=== PATIENT | male | born 1995 | race Two or more races ===

== ENCOUNTER 2023-11-14 19:58 | Emergency (ER) | payer MEDICAID, OTHER ==
[~2023-11-14] VITALS: Ht 167.6 cm; Wt 92.2 kg
[2023-11-14 21:19] LABS: Base Excess 4.2 mmol/L (-2.0-2.0)
[2023-11-14 21:54] LABS: Basophils # (auto) 0 10 ^3/uL (0-0.2); Basophils % (auto) 0.5 % (0.0-2.0); Eosinophils # (auto) 0.2 10 ^3/uL (0-0.8); Eosinophils % (auto) 2.2 % (0.0-7.0); Hematocrit 45.2 % (41.0-53.0); Hemoglobin 15.3 g/dL (13.5-17.5); Lymphocytes # (auto) 3.9 10 ^3/uL (0.4-5.4); Lymphocytes % (auto) 47.4 % (10.0-50.0); Mean Corpuscular Hemoglobin 29.1 pg (28.0-32.0); Mean Corpuscular Hgb Conc. 33.7 g/dL (32.0-36.0); Mean Corpuscular Volume 86.2 fL (80.0-100.0); Monocytes # (auto) 0.7 10 ^3/uL (0-1.3); Monocytes % (auto) 8.1 % (0.0-12.0); Neutrophils # (auto) 3.4 10 ^3/uL (1.6-8.6); Neutrophils % (auto) 41.8 % (37.0-80.0); Red Blood Cells 5.24 10^6/uL (4.5-5.90); Red Cell Distribution Width 12.8 % (11.8-14.3); White Blood Cell 8.2 10^3/uL (4.4-10.8)
[2023-11-14 22:11] LABS: Alanine Aminotransferase 31 U/L (7-40); Albumin 4.6 g/dL (3.2-4.8); Alkaline Phosphatase 70 U/L (46-116); Anion Gap 8 (5-15); Aspartate Aminotransferase 22 U/L (13-40); BUN/Creatinine Ratio 8.9 (10.0-20.0); Bilirubin, Total 0.3 mg/dL (0.2-1.0); Blood Urea Nitrogen 11 mg/dL (9-23); Calcium 9.2 mg/dL (8.7-10.4); Carbon Dioxide 27 mmol/L (20-30); Chloride 104 mmol/L (98-107); Glucose 96 mg/dL (74-106); Potassium 3.8 mmol/L (3.5-5.1); Sodium 139 mmol/L (136-145); Total Protein 7.4 g/dL (5.7-8.2)
[2023-11-15] VITALS: BP 111/61; PULSE 93; RESP 20; TEMP 98.4; O2SAT 100
[2023-11-15 00:18] LABS: Base Excess 1.4 mmol/L (-2.0-2.0)
== END 2023-11-15 01:34 | disposition home or self-care (01) ==
LOC: ER 19:58
DX: T58.2X1A Toxic effect of carbon monoxide from incomplete combustion of other domestic fuels, accidental (unintentional), initial encounter (principal); Z88.8 Allergy status to other drugs, medicaments and biological substances; Y92.098 Other place in other non-institutional residence as the place of occurrence of the external cause
CPT/HCPCS: 36415; 36600; 80053; 82805; 85025

== ENCOUNTER 2024-10-20 11:10 | Emergency (ER) | payer BC, MEDICAID ==
[~2024-10-20] VITALS: Ht 170.2 cm; Wt 83.0 kg
[2024-10-20 11:53] VITALS: BP 122/77; PULSE 112; RESP 16; TEMP 100.8; O2SAT 95
--- NOTE | 2024-10-20 11:53 | ED.PDOC ---
Eye-HPI HPI Comments A 28 YEAR OLD MALE PRESENTS TO THE ED WITH COMPLAINT OF FLU-LIKE SYMPTOMS. PATIENT STATES HE HAS BEEN EXPERIENCING A SORE THROAT, BODY ACHES, MILD COUGH, CONGESTION, AND OCCASIONAL FEVER FOR THE PAST 2 DAYS. PATIENT DENIES SHORTNESS OF BREATH, CHEST PAIN, ABDOMINAL PAIN, NAUSEA, VOMITING, HEADACHE, OR OTHER COMPLAINTS. NO OTHER SYMPTOMS OR MODIFYING FACTORS AT THIS TIME. PATIENT IS ALERT, ORIENTED X 4, AND HAS STEADY GAIT. Chief Complaint: Flu like Time Seen by MD: 11:21 Reviewed Notes: Nurses Notes, Medications, Allergies Allergies: Coded Allergies: Penicillins (Verified Allergy, Unknown, 11/14/23) Information Source: Patient Mode of Arrival: Ambulatory Timing: Days Duration: Since onset, Days Prehospital treatment: None Quality: Pain, Red Lids: Normal Conjunctiva: Normal Cornea: Normal Pupils: Normal EOM: Normal Fundus: Normal Slit lamp exam: Normal Anterior chamber: Normal Mouth Location: Pharynx Mouth: Normal ENT Ear Exam: Normal, Normal, Normal Nose: Normal Sinuses: Normal Oropharynx: Tonsillar hypertrophy, Red Onset: Spontaneous Throat Exposed to: None History of: None Last Tetanus: Unknown Modifying factors: Nothing Associated signs and symptoms: Fever, Nasal Symptoms, Sore Throat Past Medical History PAST MEDICAL HISTORY: Denies Surgical History: Denies all surgeries Family History Family History: Reviewed,noncontributory to illness, Family hx of HTN Social History Smoker: Non-Smoker Alcohol: Occasionally Drugs: Denies Drug Use Lives In: Home Constitutional: reports: fever; denies: chills, diaphoresis, fatigue, malaise, sweats, weakness, others EENTM: reports: nose congestion, throat pain, throat swelling; denies: blurred vision, double vision, ear bleeding, ear discharge, ear drainage, ear pain, ear ringing, eye pain, eye redness, hearing loss, mouth pain, mouth swelling, nasal discharge, nose bleeding, nose pain, photophobia, tearing, voice changes, others Respiratory: reports: cough; denies: hemoptysis, orthopnea, SOB at rest, shortness of breath, SOB with excertion, stridor, wheezing, others Cardiovascular: denies: chest pain, dizzy spells, diaphoresis, Dyspnea on e xertion, edema, irregular heart beat, left arm pain, lightheadedness, palpitations, PND, syncope, others Gastrointestinal: denies: abdomen distended, abdominal pain, blood streaked bowels, constipated, diarrhea, dysphagia, difficulty swallowing, hematemesis, melena, nausea, poor appetite, poor fluid intake, rectal bleeding, rectal pain, vomiting, others Genitourinary: denies: burning, dysuria, flank pain, frequency, hematuria, incontinence, penile discharge, penile sore, pain, testicle pain, testicle swelling, urgency, others Neurological: denies: dizziness, fainting, headache, left sided numbness, left sided weakness, numbness, paresthesia, pre-existing deficit, right sided numbness, right sided weakness, seizure, speech problems, tingling, tremors, weakness, others Musculoskeletal: reports: muscle pain; denies: back pain, gout, joint pain, joint swelling, muscle stiffness, neck pain, others Integumetry: denies: bruises, change in color, change in hair/nails, dryness, laceration, lesions, lumps, rash, wounds, others Allergic/Immunocompromised: denies: Difficulty Healing, Frequent Infections, Hives, Itching, others Hematologic/Lymphatic: denies: anemia, blood clots, easy bleeding, easy bruising, swollen glands, others Endocrine: denies: excessive hunger, excessive sweating, excessive thirst, excessive urination, flushing, intolerance to cold, intolerance to heat, unexplained weight gain, unexplained weight loss, others Psychiatric: denies: anxiety, bipolar disorder, depression, hopeless, panic disorder, schizophrenia, sleepless, suicidal, others All Other Systems: Reviewed and Negative Physical Exam General Appearance: No Apparent Distress, Normal HEENT: PERRL/EOMI, Pharyngeal Erythema (TONSILLAR SWELLING, NO EXUDATES. ), TMs Normal Neck: Full Range of Motion, Non-Tender, Normal, Normal Inspection Respiratory: Chest Non-Tender, Lungs Clear, No Accessory Muscle Use, No Respiratory Distress, Normal Breath Sounds Cardiovascular: No Edema, No JVD, No Murmur, No Gallop, Normal Peripheral Pulses, Regular Rate/Rhythm Breast Exam: Deferred Gastrointestinal: No Organomegaly, Non Tender, No Pulsatile Mass, Normal Bowel Sounds, Soft Genitalia: Deferred Pelvic: Deferred Rectal: Deferred Extremities: No calf tenderness, Normal capillary refill, Normal inspection, Normal range of motion, Non-tender, No pedal edema Musculoskeletal : Apperance: Normal Neurologic: Alert, office analyst II-XII nml as Tested, No Motor Deficits, Normal Affect, Normal Mood, No Sensory Deficits Cerebellar Function: Normal Reflexes: Normal Skin: Dry, Normal Color, Warm Peripheral Pulses: 2+ carotid (R), 2+ carotid (L) Lymphatic: No Adenopathy Was a procedure done? Was a procedure done?: No EENT DIFF Eye: N/A Ear: Otitis Media, Pharyngitis, Sinusitis Nose: N/A Mouth: N/A Sore Throat: Pharyngitis, Streptococcal, Viral Pharyngitis, URI X-Ray, Labs, Meds, VS Vital Signs Date Time Temp Pulse Resp B/P (MAP) Pulse Ox O2 Delivery O2 Flow Rate FiO2 10/20/24 11:53 100.8 112 16 122/77 (92) 95 100.8 10/20/24 11:53 112 16 95 Room Air 10/20/24 11:51 100.8 112 16 122/77 (92) 95 Current Medications Medications (Trade) Dose Ordered Sig/Aung Route Start Time Stop Time Status Last Admin Ceftriaxone Sodium (Rocephin) 1,000 mg ONCE ONCE IM 10/20/24 12:00 10/20/24 12:01 DC 10/20/24 12:01 X-Ray, Labs, Meds, VS Comment EXTERNAL NOTES: NONE LABS ORDERED: NONE REVIEWED AND INTERPRETED RESULTS: NONE IMAGING ORDERED: XR CHEST: [INTERPRETED BY ME. NO ACUTE FINDINGS. NO PNEUMONIA. NO CONSOLIDATIONS. NO INFILTRATES. PENDING RADIOLOGIST REPORT. ] INDEPENDENT HISTORIANS: NONE TREATMENTS ORDERED: ROCEPHIN 1 G IM PATIENT'S CASE AND RESULTS HAVE BEEN DISCUSSED WITH THE ED ATTENDING PHYSICIAN AND THEY AGREE WITH MY PLAN OF CARE. I HAVE DISCUSSED IMAGING RESULTS WITH PATIENT AND HAVE INSTRUCTED THEM TO FOLLOW UP WITH THEIR PCP IN 1-2 DAYS. THE PATIENT FULLY UNDERSTANDS THEIR RESULTS AND IS AWARE THEY NEED TO FOLLOW UP WITH THEIR PCP FOR FURTHER EVALUATION IF THEIR SYMPTOMS PERSIST. Images Reviewed?: Images reviewed and evaluated by me Time of 1ST Reevaluation: : Reevaluation 1ST: Improved Patient Education/Counseling: Diagnosis, Treatment, Need For Follow Up Family Education/Counseling: Diagnosis, Treatment, Need For Follow Up Medical Screening: No EMC Exist At This Time Departure 1 Departure Time of Disposition: : Impression: Primary Impression: Acute tonsillitis Qualified Codes: J03.90 - Acute tonsillitis, unspecified Additional Impression: URI (upper respiratory infection) Qualified Codes: J03.90 - Acute tonsillitis, unspecified Disposition: 01 HOME / SELF CARE / HOMELESS Condition: Stable Additional Instructions: FOLLOW-UP WITH PCP IN 1 TO 2 DAYS. TAKE MEDICATIONS PRESCRIBED. RETURN TO ED FOR ANY NEW OR WORSENING SYMPTOMS. e-Prescriptions Promethazine-Dm (Promethazine Dm 6.25-15 mg/5Ml) 1 [place] 5 ML PO TID, #150 ML Prov: JOSHUA HERRERA 10/20/24 Cephalexin Monohydrate (Cephalexin) 500 Mg Cap 1 CAP PO QID, #28 CAP Prov: JOSHUA HERRERA 10/20/24 Discharged With: Self Critical Care Note Critical Care Time?: No Stability Stability form required: No I personally scribed for JOSHUA HERRERA ([email or web address]) on 10/20/24 at 11:53. Electronically submitted by Richie Wagner ([email or web address]). I personally scribed for JOSHUA HERRERA ([email or web address]) on 10/20/24 at 12:14. Electronically submitted by Richie Wagner ([email or web address]). JOSHUA HERRERA Oct 20, 2024 11:53
[2024-10-20] MEDS: cefTRIAXone SOD 1,000 MG VL IM ONE (12:01)
[2024-10-20] MEDS ORDERED: CEPH500C PO (12:24)
[2024-10-20] MEDS ORDERED: PROM1SOL4 PO (12:24)
--- NOTE | 2024-10-20 12:50 | DVH ---
CHEST RADIOGRAPH Indication: COUGH Technique: Single frontal view of the chest was obtained COMPARISON: None FINDINGS: Lines and Tubes: None Lungs: Clear Pleura: No effusion. No pneumothorax. Cardiomediastinal contours: Unremarkable Bones: Unremarkable IMPRESSION: 1. No acute disease.
== END 2024-10-20 12:27 | disposition home or self-care (01) ==
LOC: ER 11:10
DX: J06.9 Acute upper respiratory infection, unspecified (principal); J03.90 Acute tonsillitis, unspecified; R50.9 Fever, unspecified; Z88.0 Allergy status to penicillin
CPT/HCPCS: 71045; 96372; 99283; J0696

== ENCOUNTER 2025-09-16 16:35 | Emergency (ER) | payer BC ==
[~2025-09-16] VITALS: Ht 170.2 cm; Wt 97.3 kg
[~2025-09-16 16:35] MED LIST: CEPH500C PO; PROM1SOL4 PO
--- NOTE | 2025-09-16 16:47 | ECG ---
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
[2025-09-16 17:06] LABS: Hematocrit 43.3 % (41.0-53.0); Hemoglobin 14.9 g/dL (13.5-17.5); Mean Corpuscular Hemoglobin 29.2 pg (28.0-32.0); Mean Corpuscular Volume 85.2 fL (80.0-100.0); Nucleated Red Blood Cells % 0.3 %
[2025-09-16 17:10] LABS: Chloride 101 mmol/L (98-107); Potassium 3.9 mmol/L (3.5-5.1); Sodium 139 mmol/L (136-145)
[2025-09-16 17:11] LABS: Anion Gap 10 (5-15); Calcium 9.2 mg/dL (8.7-10.4); Carbon Dioxide 28 mmol/L (20-31)
[2025-09-16 17:16] LABS: BUN/Creatinine Ratio 16.2 (10.0-20.0); Blood Urea Nitrogen 18 mg/dL (9-23)
[2025-09-16 17:18] LABS: Glucose 187 mg/dL (74-106)
--- NOTE | 2025-09-16 17:29 | DVH ---
CHEST RADIOGRAPH Indication: cp Technique: Single frontal view of the chest was obtained Comparison: XY CHEST PORTABLE on DOS: 09/16/25, XY CHEST XRAY 1 VIEW on DOS: 10/20/24 FINDINGS: Lines and Tubes: None Lungs: No focal consolidation. Pleura: No effusion. No pneumothorax. Cardiomediastinal contours: Unremarkable Bones: No acute osseous abnormality. IMPRESSION: 1. No acute cardiopulmonary disease.
--- NOTE | 2025-09-16 17:48 | ED.PDOC ---
HPI Comments HPI: Past Medical history: Denies Any Past Surgical history: Appendectomy Medications: Denies any Social History: Denies smoking, and drug use. Occasional Alcohol Use Family Hx:No Family Hx of heart Alejandro Allergies: Penicillin HPI: Poor Historian. 29-year-old male presents to emergency depart for elevation of one focal left anterior chest wall area of pain that is intermittent nonradiating worse with deep inspiration happened few hours ago while he was at work. Patient states he had this kind of pain in the past but did not last this long. Denies any other associated symptoms. Patient says that his symptoms have significantly improved by the time I have seen him without any interventions. REVIEW OF SYSTEMS: CONSTITUTIONAL: Denies acute: fever, diaphoresis, chills, generalized weakness. HEAD: Denies acute: headache, photophobia Eyes: Denies acute: Double vision, vision loss, eye pain, eye discharge. EARS: Denies acute: tinnitus, hearing loss, ear discharge, ear pain, THROAT: Denies acute: sore throat, swelling, difficulty swallowing , pain with swallowing, change in voice. NECK: Denies acute: neck pain, neck swelling, stiff neck. HEART: Denies acute : palpitations, LUNGS: Denies acute: SOB, wheezing, cough, hemoptysis ABDOMEN: Denies acute: abdominal pain, Nausea, Vomiting, diarrhea, melena , hematemesis, hematochezia SKIN: Denies acute: rash, redness, lesions, itchiness. EXTREMITIES: Denies acute: calf pain, numbness, tingling, weakness, denies pain in extremity. Denies acute: Low back pain. Neuro: Denies acute: focal neurological deficit, motor or sensory focal neurological deficit, tremors, seizure like activity, confusion, dizziness, change in mental status, loss of bowel or bladder function, cauda equina like symptoms. : Denies acute: dysuria, hematuria, flank pain, increase in urinary frequency. PSYCH: Denies acute: hallucination, suicidal ideation, homicidal ideation. PHYSICAL EXAM: General: ----no----acute distress, awake and alert. Head: normocephalic, atraumatic. No raccoon's eyes, no hare sign. Neck: supple, trachea is midline, no swelling. Throat: Normal phonation. Eyes:, no erythema, no purulent discharge, no proptosis, no icterus. Heart: regular rate, regular rhythm, no significant murmur appreciated. Lungs: no apparent respiratory distress, Able to speak in full sentences. No wheezing, no rhonchi, no crackles. No stridors Clear to auscultation bilaterally. Abdomen: non tender to palpation, non distended, soft, no guarding, no rebound, + bowel sounds. Neuro: Awake, Alert, oriented to name, self, situation, follows commands GCS=15. Speech is normal. Skin: no petechia, no purpura, no cyanosis, non-pale, not jaundice. Lower extremities: --no - Pitting edema no deformity, no focal swelling, no calf TTP. Makes eye contact. moves all four extremities. Face: no apparent facial droop. Ambulating in the ED independently. ED COURSE: DISCLAIMER: This medical document was created using an electronic medical record system with voice recognition software and computerized dictation system. Although this document has been carefully reviewed, there might still be some phonetic and typographical errors. Occasional wrong-word or "sound-alike" substitutions may have occurred due to the inherent limitations of voice recognition software. These areas are purely typographical due to imperfections of the software programs and do not reflect any compromise in the patient's medical care. Please read the chart carefully and recognize, using context, where these substitutions have occurred. Chief Complaint: Chest Pain Time Seen by MD: 17:45 Reviewed Notes: Nurses Notes, Medications, Allergies Allergies: Coded Allergies: Penicillins (Verified Allergy, Unknown, 11/14/23) Home Meds Active Scripts Promethazine-Dm (Promethazine Dm 6.25-15 mg/5Ml) 1 [place], 5 ML PO TID, #150 ML Prov:JOSHUA HERRERA 10/20/24 Cephalexin Monohydrate (Cephalexin) 500 Mg Cap, 1 CAP PO QID, #28 CAP Prov:JOSHUA HERRERA 10/20/24 Information Source: Patient Mode of Arrival: Ambulatory Was a procedure done? Was a procedure done?: No CP Differential Dx Differential Diagnosis: N/A Differential Diagnosis: Other (Ddx include but not limitied to gastritis, musculoskeletal pain, radiculopathy, atypical chest pain, dissection, aneurysm, ACS, unstable angina, hiatal hernia, GERD, anxiety, costochondritis, PE, pneumothroax, neoplasm, cardiac ischemia, drug abuse, anemia.) X-Ray, Labs, Meds, VS Vital Signs Date Time Temp Pulse Resp B/P (MAP) Pulse Ox O2 Delivery O2 Flow Rate FiO2 09/16/25 18:47 Room Air* 0 21 09/16/25 18:38 97.9 71 16 114/74 (87) 100 97.9 09/16/25 17:41 74 09/16/25 16:41 83 09/16/25 16:39 97.9 73 19 105/59 97 97.9 Lab Test 09/16/25 17:51 09/16/25 17:46 09/16/25 16:50 Range/Units Urine Opiates Screen Neg NEGATIVE Urine Fentanyl Screen Neg NEGATIVE Urine Barbiturates Screen Neg NEGATIVE Urine Phencyclidine Screen Neg NEGATIVE Urine Amphetamines Screen Neg NEGATIVE Urine Benzodiazepines Screen Neg NEGATIVE Urine Cocaine Screen Neg NEGATIVE Urine Cannabinoids Screen Neg NEGATIVE Troponin I High Sensitivity 3 L < 3 L </=54 ng/L White Blood Count 10.7 4.4-10.8 10^3/uL Red Blood Count 5.08 4.5-5.90 10^6/uL Hemoglobin 14.9 13.5-17.5 g/dL Hematocrit 43.3 41.0-53.0 % Mean Corpuscular Volume 85.2 80.0-100.0 fL Mean Corpuscular Hemoglobin 29.2 28.0-32.0 pg Mean Corpuscular Hemoglobin Concent 34.3 32.0-36.0 g/dL Red Cell Distribution Width 12.8 11.8-14.3 % Platelet Count 220 140-450 10^3/uL Mean Platelet Volume 7.6 6.9-10.8 fL Neutrophils (%) (Auto) 79.5 37.0-80.0 % Lymphocytes (%) (Auto) 16.1 10.0-50.0 % Monocytes (%) (Auto) 3.4 0.0-12.0 % Eosinophils (%) (Auto) 0.5 0.0-7.0 % Basophils (%) (Auto) 0.5 0.0-2.0 % Neutrophils # (Auto) 8.5 1.6-8.6 10 ^3/uL Lymphocytes # (Auto) 1.7 0.4-5.4 10 ^3/uL Monocytes # (Auto) 0.4 0-1.3 10 ^3/uL Eosinophils # (Auto) 0.1 0-0.8 10 ^3/uL Basophils # (Auto) 0.1 0-0.2 10 ^3/uL Nucleated Red Blood Cells 0.3 % D-Dimer, Quantitative < 0.19 0.0-0.49 mg/L FEU Sodium Level 138 136-145 mmol/L Potassium Level 3.4 L 3.5-5.1 mmol/L Chloride Level 103 98-107 mmol/L Carbon Dioxide Level 27 20-31 mmol/L Anion Gap 8 5-15 Blood Urea Nitrogen 13 9-23 mg/dL Creatinine 1.10 0.700-1.30 mg/dL Glomerular Filtration Rate Calc 94 >90 mL/min BUN/Creatinine Ratio 11.8 10.0-20.0 Serum Glucose 170 H 74-106 mg/dL Calcium Level 9.4 8.7-10.4 mg/dL Total Bilirubin 0.4 0.2-1.0 mg/dL Aspartate Amino Transferase (AST) 27 13-40 U/L Alanine Aminotransferase (ALT) 28 7-40 U/L Alkaline Phosphatase 74 46-116 U/L Total Protein 7.4 5.7-8.2 g/dL Albumin 4.4 3.2-4.8 g/dL Current Medications Medications (Trade) Dose Ordered Sig/Aung Route Start Time Stop Time Status Last Admin Ketorolac Tromethamine (Toradol Injection) 30 mg ONCE ONCE IM 09/16/25 18:30 09/16/25 18:31 DC 09/16/25 18:38 [place] [id number] Ph: [phone] DIAGNOSTIC IMAGING Diagnostic Imaging Report : [id number] Signed PATIENT: MICHAEL ONOFRE ACCT: [id number] UNIT: [id number] : 1995 LOC: ER ROOM / BED: / AGE / SEX: 29 / M ADM STATUS: REG ER SERVICE [id number] ORDERING PHYSICIAN: SAMIR KAUFMAN DO PROCEDURE(s): CXRP - CHEST PORTABLE REASON: cp ORDER NUMBER(s): [id number], ACCESSION NUMBER(s): [id number] CHEST RADIOGRAPH Indication: cp Technique: Single frontal view of the chest was obtained Comparison: XY CHEST PORTABLE on DOS: 09/16/25, XY CHEST XRAY 1 VIEW on DOS: 10/20/24 FINDINGS: Lines and Tubes: None Lungs: No focal consolidation. Pleura: No effusion. No pneumothorax. Cardiomediastinal contours: Unremarkable Bones: No acute osseous abnormality. IMPRESSION: 1. No acute cardiopulmonary disease. ATED BY: WERNER QUINTEROS Jr., DO DICTATED DATE/TIME: 09/16/251725 SIGNED BY: WERNER QUINTEROS Jr., SIGNED DATE/TIME: 09/16/251725 Time of 1ST Reevaluation: 18:15 Reevaluation 1ST: Unchanged Patient Education/Counseling: Diagnosis, Treatment Family Education/Counseling: No Family Present Comments MDM: patient presented with the above HPI.-chest pain-----workup was initiated. patient was found with the above mentioned diagnosis. the following medications were ordered: please refer to order lists of meds and tests obtained by myself Dr. Kaufman. Patient ED course and VS have been stabilized. Patient has been reassessed in the ED and remained in a stable condition. Pertinent incidental findings were discussed with the patient and/or family. Patient/family voices understanding and is agreeable with plan. Patient has been observed in the ED adequate length of time to insure improvement/stability. Escalation of care considered: Consideration of escalation to observation or admission Heart score is 0 Patient was DISCHARGED home in a stable condition. All the reports of any imaging studies that were ordered by myself were reviewed by myself. SEPSIS Sepsis Screen Date sepsis recognized/suspect: Sep 16, 2025 Time Sepsis recognized/suspect: 1634 Recent Procedure: No On Antibiotic Therapy: No Respiratory Rate >20: No Heart Rate >90: No Temp<36 C (96.8 F) or >38.3 C: No SBP <90 or MAP <65 mmHG: No New Acute Mental Status Change: No Is the patient on CPAP, BIPAP,: No Physician Orders Troponin-I Hs (09/16/25 19:45) Electrocardigram (09/16/25 17:45) Electrocardigram (09/16/25 19:45) Knockup Worker (09/16/25 ) Chest Portable (09/16/25 16:56) Vital Signs Date Time Temp Pulse Resp B/P (MAP) Pulse Ox O2 Delivery O2 Flow Rate FiO2 09/16/25 18:47 Room Air* 0 21 09/16/25 18:38 97.9 71 16 114/74 (87) 100 97.9 09/16/25 17:41 74 09/16/25 16:41 83 09/16/25 16:39 97.9 73 19 105/59 97 97.9 Laboratory Tests Test 09/16/25 16:50 White Blood Count 10.7 10^3/uL (4.4-10.8) Medications Medications Dose Ordered Sig/Aung Route Start Time Stop Time Status Last Admin Dose Admin Ketorolac Tromethamine 30 mg ONCE ONCE IM 09/16/25 18:30 09/16/25 18:31 DC 09/16/25 18:38 Departure 1 Departure Time of Disposition: 18:25 Impression: Primary Impression: Chest pain Disposition: HOME / SELF CARE / HOMELESS Condition: Stable Additional Instructions: Additional instructions: Please read all instructions provided in this packet carefully. You MUST follow-up with your primary care/family doctor in 1 to 2 days. If you are unable to see your primary care/family doctor, please return to our emergency room for re-assessment and re-evaluation in 1 to 2 days. Return to the emergency room here in our facility or to the nearest ER SUNDAY if your symptoms change or worsen. CONSULTATIONS: you MUST Follow-up for consultation as soon as possible with: ----cardiology in 1-2 days. Please call for appointment. You MUST call the consultants office yourself to make an appointment. You may need to arrange that through your insurance and/or your primary/family doctor. If you are unable to see the publicity consultant in 1 to 2 days, you must return to our emergency room (or any other ER of your choice) for re-assessment and re- evaluation. Adequate fluid hydration. Although you have been discharged from the Emergency Department, this does not mean that you have a "clean bill of health". No definitive diagnosis for your symptoms has been made today. It is possible that you are in the process of developing a serious illness. This is why you must return to the ED without fail if any new or worsening symptoms develop. Discharged With: Self Critical Care Note Critical Care Time?: No Heart Score Heart Score: Heart Score Response (Comments) Value History Slightly Suspicious 0 EKG Normal 0 Age <45 0 Risk Factors No known risk factors 0 Troponin Normal limit 0 Total 0 I personally scribed for SAMIR KAUFMAN DO ([email or web address]) on 09/16/25 at 17:48. Electronically submitted by Simón Person ([email or web address]). I personally scribed for SAMIR KAUFMAN DO ([email or web address]) on 09/16/25 at 19:00. Electronically submitted by Simón Person ([email or web address]). SAMIR KAUFMAN DO Sep 16, 2025 17:48
[2025-09-16 18:29] LABS: Alanine Aminotransferase 28 U/L (7-40); Albumin 4.4 g/dL (3.2-4.8); Alkaline Phosphatase 74 U/L (46-116); Anion Gap 8 (5-15); BUN/Creatinine Ratio 11.8 (10.0-20.0); Bilirubin, Total 0.4 mg/dL (0.2-1.0); Blood Urea Nitrogen 13 mg/dL (9-23); Calcium 9.4 mg/dL (8.7-10.4); Carbon Dioxide 27 mmol/L (20-31); Chloride 103 mmol/L (98-107); Sodium 138 mmol/L (136-145); Total Protein 7.4 g/dL (5.7-8.2)
[2025-09-16 18:38] VITALS: BP 114/74; PULSE 71; RESP 16; TEMP 97.9; O2SAT 100
[2025-09-16] MEDS: KETOROLAC TROMETH 30 MG/ML 1ML VIAL IM ONE (18:38)
[2025-09-16 18:42] LABS: Glucose 170 mg/dL (74-106); Potassium 3.4 mmol/L (3.5-5.1)
[2025-09-16 18:43] LABS: Amphetamine Screen, Urine Neg (NEGATIVE); Barbiturate Scree,Urine Neg (NEGATIVE); Benzodiazephine Screen, Urine Neg (NEGATIVE); Cannabinoid Screen, Urine Neg (NEGATIVE); Cocaine Screen, Urine Neg (NEGATIVE); Opiate Scree,Urine Neg (NEGATIVE); Phencyclidine Screen, Urine Neg (NEGATIVE)
--- NOTE | 2025-09-18 08:37 | ECG ---
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
== END 2025-09-16 19:05 | disposition home or self-care (01) ==
LOC: ER 16:38
DX: R07.89 Other chest pain (principal); Z88.0 Allergy status to penicillin; Z90.49 Acquired absence of other specified parts of digestive tract
CPT/HCPCS: 36415; 71045; 80048; 80053; 80307; 84484; 85025; 85379; 93005; 96372; 99285; J1885